=== PATIENT | female | born 1965 | race Hispanic/Latino ===

== ENCOUNTER 2022-05-15 06:09 | Emergency (ER) | payer BC ==
[~2022-05-15] VITALS: Ht 152.4 cm; Wt 88.5 kg
[2022-05-15] MEDS ORDERED: ONDANSETRON ODT4 MG PO (07:35)
[2022-05-15] MEDS ORDERED: TAMIFLU75 MG PO (07:35)
== END 2022-05-15 07:39 | disposition home or self-care (01) ==
LOC: FSED 07:33
DX: R05.9 Cough, unspecified (principal); J10.1 Influenza due to other identified influenza virus with other respiratory manifestations; I10 Essential (primary) hypertension; E03.9 Hypothyroidism, unspecified; E78.00 Pure hypercholesterolemia, unspecified
CPT/HCPCS: 80053; 82553; 84484; 85025; 87400; 93005; 99283